=== PATIENT | male | born 1970 | race Caucasian/White ===

== ENCOUNTER 2016-12-24 11:18 | Emergency (ER) | payer OTHER, MEDICARE, MEDICAID ==
[~2016-12-24] VITALS: Ht 188 cm; Wt 113.6 kg
[~2016-12-24 11:18] MED LIST: ALPR1TAB7 PO; ASPI-973 PO; BACL10TA PO; CHOL100045 PO; CIPR-231 PO; GABA-502 PO; HYDR-4003 PO; HYG25 PO; KEN25CR EXT; NITR1OIN TD; OXYB5TAB10 PO; POTA-62 PO; SIMV20TA4 PO; TAMS0.4C98 PO
[2016-12-24 11:58] VITALS: PULSE 65; RESP 14; O2SAT 100
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
[2016-12-24 13:03] VITALS: BP 99/63
[2016-12-24] MEDS ORDERED: 0.9% Sodium Chloride 1,000 ML IV ONE (13:04)
[2016-12-24 13:48] LABS: BASOPHILS % (AUTO) 0.6 % (0-3); MONOCYTES % (AUTO) 8.9 % (4-12); Mean Corpuscular Hemoglobin 28.6 pg (27.0-35.0); Mean Corpuscular Volume 79.9 fL (81-100); NEUTROPHILS % (AUTO) 68.3 % (40-74); Platelet Count 402 bil/L (150-400)
--- NOTE | 2016-12-24 13:59 | DRSVH ---
PROCEDURE: X-RAY CHEST ONE VIEW, PORTABLE ([id number]) INDICATIONS: chills TECHNIQUE: One view of the chest was acquired. COMPARISON: 07/27/2015 FINDINGS: Surgical changes and devices: None. Lungs and pleura: No pleural effusions or pneumothorax. Lungs are clear. Mediastinum: Mediastinal contours appear normal. Heart size is normal. Bones and chest wall: No suspicious bony lesions. Overlying soft tissues appear unremarkable. IMPRESSION: No acute cardiopulmonary abnormality Dictated by: Amish Torres M.D. on 12/24/2016 at 13:56 Approved by: Amish Torres M.D. on 12/24/2016 at 13:57
[2016-12-24 14:10] LABS: TROPONIN T < 0.010 ug/L (0.0-0.011)
[2016-12-24 14:26] LABS: Magnesium 1.8 mg/dL (1.6-2.6)
[2016-12-24 14:42] VITALS: BP 134/46; PULSE 60; RESP 19; O2SAT 98
[2016-12-24] MEDS ORDERED: Linezolid Inj 600 MG in IV Premix 1 EACH IV ONE (15:05)
[2016-12-24 15:30] LABS: APPEARANCE,URINE HAZY (CLEAR,HAZY); COLOR,URINE STRAW (YELLOW)
[2016-12-24 15:31] LABS: OCCULT BLOOD,URINE SMALL (NEGATIVE); UROBILINOGEN,URINE NORMAL (NORMAL)
[2016-12-24 15:36] VITALS: BP 95/27; PULSE 58; RESP 16; O2SAT 97
--- NOTE | 2016-12-24 16:17 | DRSVH ---
PROCEDURE: CT KUB ([id number]) INDICATIONS: flank pain TECHNIQUE: Noncontrast 5 mm thick sections acquired from the diaphragms to the symphysis. 5 mm thick coronal an d sagittal reformats were then performed. For radiation dose reduction, the following was used: aut omated exposure control, adjustment of mA and/or kV according to patient size. COMPARISON: [facility], CR, XR KUB, 07/02/2016, 12:16. FINDINGS: Image quality: Diagnostic with mild motion artifact. Lung bases: There is minimal dependent atelectasis. Heart size is normal. Urinary system: There is nonspecific perinephric stranding redemonstrated bilaterally. There are mu ltiple, at least 5, nonobstructing right renal stones redemonstrated with the largest measuring up to 8 mm. There is a small nonobstructing left renal stone measuring up to 4 mm. There is no hydroneph rosis. There is a lobulated right renal cyst as well as additional low density foci in the kidneys b ilaterally likely representing cysts. Both ureters appear non-dilated throughout their expected cour ses. There is a Akers catheter within a decompressed urinary bladder. Other solid organs: Liver and spleen are normal in size. Gallbladder is nondistended. Pancreas is normal in contours. There is thickening of the left adrenal gland redemonstrated. No discrete nodul es. Peritoneum and bowel: Unenhanced bowel loops demonstrate normal wall thickness and caliber. No mart cecal inflammatory changes to suggest appendicitis. There are surgical clips adjacent to the cecum l ikely reflecting prior appendectomy. No free fluid or air. Nodes and vessels: No retroperitoneal or mesenteric adenopathy by size criteria. Aorta and inferior vena cava are normal in caliber. Abdominal wall: No ventral hernias. Pelvis: No free pelvic fluid. No inguinal hernias or adenopathy. Bones: No suspicious bony lesions. There are bilateral small hip joint effusions. No vertebral bod y compression fractures. There calcifications demonstrated along tendon attachment sites within the bony pelvis suggesting enthesitis. IMPRESSION: 1. Bilateral nephrolithiasis redemonstrated without evidence of hydronephrosis. Dictated by: Trino Garcia M.D. on 12/24/2016 at 16:06 Approved by: Trino Garcia M.D. on 12/24/2016 at 16:16
[2016-12-24] MEDS ORDERED: SULF1TAB35 PO (17:19)
[2016-12-24 18:14] VITALS: PULSE 59; RESP 16; O2SAT 99
== END 2016-12-24 18:15 | disposition home or self-care (01) ==
LOC: SED 11:18
DX: T83.511A Infection and inflammatory reaction due to indwelling urethral catheter, initial encounter (principal); Y84.6 Urinary catheterization as the cause of abnormal reaction of the patient, or of later complication, without mention of misadventure at the time of the procedure; Y93.89 Activity, other specified; Y92.89 Other specified places as the place of occurrence of the external cause; Y99.8 Other external cause status; E11.9 Type 2 diabetes mellitus without complications; E78.5 Hyperlipidemia, unspecified; F41.9 Anxiety disorder, unspecified; I10 Essential (primary) hypertension; Z87.01 Personal history of pneumonia (recurrent); Z87.440 Personal history of urinary (tract) infections; Z87.442 Personal history of urinary calculi; Z87.828 Personal history of other (healed) physical injury and trauma; Z98.890 Other specified postprocedural states; Z87.891 Personal history of nicotine dependence; Z79.82 Long term (current) use of aspirin; Z91.048 Other nonmedicinal substance allergy status
CPT/HCPCS: 36415; 71010; 74176; 80053; 81000; 83605; 83735; 84145; 84484; 85025; 87040; 87086; 87088; 87186; 93005; 96361; 96365; 99285; J2020; J7030